=== PATIENT | female | born 1955 | race Caucasian/White ===

== ENCOUNTER → 2016-12-29 | Outpatient (CLI) | payer BC ==
[~2016-12-29] MED LIST: BENAZEPRIL-HCTZ1 T21 PO; CALCIUM 600 + D1 TA1 PO; DICYCLOMINE HCL10 MG PO; ECOTRIN325 MG PO; MULTI VITAMIN1 EACH PO; PROTONIX PO; VYTORIN 10/80 T1 TAB PO; [UNRECOGNIZED DRUG - OTHER]
--- NOTE | ~2016-12-29 | BD1 ---
[facility] A Service of [facility] & [facility] RADIOLOGY TEXT RESULTS PATIENT: TOBIN BRANCH LOCATION: [facility] : 53 UNIT #: [id number] AGE: [address]: Jayden Galvez MD SEX: F ORDER DR: [id number] [facility] [address] [place], [place] [address] [id number] O MR#: [id number] Acc #: [id number] NAME: TOBIN BRANCH : 1955 SEX: F STUDY DATE/TIME: 12/29/2016 10:25 UNIT: [facility] ROOM: STUDY DESCRIPTION: BD Dexa Bone Dens 1+ Site Attending Physician: Jayden Galvez M.D. Ordering Physician: Jayden Galvez M.D. Primary Care Physician: Jayden Galvez M.D. MEDICAL IMAGING REPORT This report is preliminary unless electronic signature is present EXAM DEXA scan 12/29/2016 HISTORY Status post menopause with no hormone replacement therapy. Osteopenia. Hypertension with blood pressure medication for 19 years. FINDINGS Bone mineral density in the lumbar spine from L1-L4. 1.188 g/cm2 which is 1.3 standard deviations above the mean when compared to the young adult reference population which is within the range of normal. This is 2.9 standard deviations above the mean when compared to the age-matched population. Bone mineral density in the left femoral neck was 0.781 g/cm2 which is 0.6 standard deviations below the mean when compared to the young adult reference population which is within the range of normal. This is 0.8 standard deviations above the mean when compared to the age-matched population. IMPRESSION Bone mineral density in the lumbar spine and the left hip within the range of normal. Dictated by... Dmitriy Weiss M.D. THIS IS AN ELECTRONICALLY VERIFIED REPORT Dmitriy Weiss M.D. at 12/29/2016 5:40 PM KRT/to TD: 12/29/2016 15:34 JOB #: [id number] MEDICAL IMAGING REPORT [facility] A Service of [facility] & [facility] RADIOLOGY TEXT RESULTS PATIENT: TOBIN BRANCH LOCATION: [facility] : 53 UNIT #: [id number] AGE: [address]: Jayden Galvez MD SEX: F ORDER DR: Page 1 of 1 COPY
== END | disposition home or self-care (01) ==
LOC: CWCC 10:00
DX: Z00.00 Encounter for general adult medical examination without abnormal findings (principal); Z78.0 Asymptomatic menopausal state
CPT/HCPCS: 77080